=== PATIENT | male | born 1935 | race Two or more races ===

== ENCOUNTER 2017-06-21 05:57 | Inpatient (IN) | payer MEDICARE, OTHER ==
[~2017-06-21] VITALS: Ht 182.9 cm; Wt 97.5 kg
--- NOTE | 2017-06-21 07:20 | NUR ---
RN NOTES RECEIVED PATIENT AWAKE ALERT AND VERBALLY RESPONSIVE, ABLE TO MAKE NEEDS KNOWN. RESPIRATIONS EVEN AND UNLABORED, DENIES ANY PAIN OR DISCOMFORT IV ACCESS TO LEFT WRIST PATENT AND INTACT NO REDNESS OR INFILTRATION NOTED. PATIENT TO HAVE SURGICAL PROCEDURE, WILL CARRY OUT ALL ADMITTING ORDERS, WILL CONTINUE TO MONITOR .
[2017-06-21 08:00] VITALS: BP 145/75
[2017-06-21] MEDS ORDERED: ACETAMINOPHEN 325 MG TABLET PO ONE (08:30)
[2017-06-21] MEDS ORDERED: CELECOXIB 100 MG CAPSULE PO ONE (08:30)
[2017-06-21] MEDS ORDERED: oxyCODONE HCL SR 10MG TAB.SR.12H PO SCH (08:30)
--- NOTE | 2017-06-21 08:30 | NUR ---
RN NOTES CLARIFIED MEDICATION ORDERS WITH DR. INIGUEZ WILL CONTINUE TO MONITOR AND ADMINISTER ORDERED
[2017-06-21] MEDS ORDERED: WARF-68 PO ×2 (08:46)
[2017-06-21] MEDS ORDERED: TEST100V5 IM (08:46)
[2017-06-21] MEDS ORDERED: VALS160T2 PO (08:46)
[2017-06-21] MEDS ORDERED: LOVA40TA2 PO (08:46)
[2017-06-21] MEDS ORDERED: CHLO25TA2 PO (08:46)
[2017-06-21] MEDS ORDERED: OMEP20CA10 PO (08:46)
[2017-06-21] MEDS ORDERED: ATOR20TA PO (08:46)
[2017-06-21] MEDS ORDERED: FLUO15CR TP (08:46)
[2017-06-21] MEDS ORDERED: NITR0.4T48 SL (08:46)
[2017-06-21] MEDS ORDERED: ASPI-1169 PO (08:46)
[2017-06-21] MEDS ORDERED: oxyCODONE IR immediate release 5 MG PO ONE (09:00)
[2017-06-21 10:00] VITALS: BP 151/78
[2017-06-21] MEDS ORDERED: TRANEXAMIC ACID 3,000 MG in SODIUM CHLORIDE IRRIG SOLUTION 70 ML IR ONE (10:30)
[2017-06-21] MEDS ORDERED: BACITRACIN 50000 UNITS/VIAL ONE (10:31)
[2017-06-21] MEDS ORDERED: KETOROLAC TROMETHAMINE INJ 30 MG/ML VIAL ONE (10:31)
[2017-06-21] MEDS ORDERED: BUPIVACAINE 0.25% 75 MG/30 ML VIAL ONE (10:31)
[2017-06-21] MEDS ORDERED: ROCURONIUM BROMIDE 50 MG/5 ML ONE (10:41)
[2017-06-21 11:07] LABS: BASOPHILS % (AUTO) 0.3 % (0.0-2.0); CALCIUM, SERUM 9.3 mg/dL (8.5-10.1); CARBON DIOXIDE 26 mmol/L (21-32); CHLORIDE 105 mmol/L (98-107); CREATININE 1.5 mg/dL (0.6-1.3); EOSINOPHILS % (AUTO) 2.4 % (0.0-6.0); GLUCOSE 108 mg/dL (74-106); HEMATOCRIT 51 % (39-51); HEMOGLOBIN 17.1 g/dL (13.5-17.5); LYMPHOCYTES # (AUTO) 1.9 /CMM (0.8-4.8); LYMPHOCYTES % (AUTO) 21.4 % (20.0-44.0); MEAN CORPUSCULAR HGB CONC 34 g/dl (31.0-36.0); MEAN CORPUSCULAR VOLUME 85 fL (80-96); MONOCYTES # (AUTO) 0.9 /CMM (0.1-1.30); MONOCYTES % (AUTO) 9.8 % (2.0-12.0); NEUTROPHILS % (AUTO) 66.1 % (43.0-81.0); PLATELET COUNT (AUTO) 155 /CMM (150-450); POTASSIUM 3.6 mmol/L (3.5-5.1); RDW COEFFICIENT OF VARIATION 13.2 (11.5-15.0); RED BLOOD CELL COUNT(AUTO) 6.01 MIL/uL (4.5-6.0); SODIUM SERUM 141 mmol/L (136-145); UREA NITROGEN, BLOOD 26 mg/dL (7-18)
[2017-06-21 11:12] LABS: ALANINE AMINOTRANSFERASE 44 U/L (12-78); ALBUMIN 3.9 g/dL (3.4-5.0); ALKALINE PHOSPHATASE 42 U/L (46-116); ASPARTATE AMINOTRANSFERASE 38 U/L (15-37); BILIRUBIN,TOTAL 1.1 mg/dL (0.2-1.0); TOTAL PROTEIN, SERUM 7.1 g/dL (6.4-8.2)
[2017-06-21 11:29] LABS: INR 1.29 (0.87-1.13)
[2017-06-21] MEDS ORDERED: MORPHINE SULFATE INJ 4 MG/ML DISP.SYRIN ONE ×2 (12:15→12:47)
[2017-06-21] MEDS ORDERED: ONDANSETRON HCL/PF 4 MG/2 ML VIAL ONE (12:24)
[2017-06-21] MEDS ORDERED: ACETAMINOPHEN 325 MG TABLET PO PRN (13:30)
[2017-06-21] MEDS ORDERED: SENNOSIDES 8.6 MG TABLET PO PRN (13:30)
[2017-06-21] MEDS ORDERED: DOCUSATE SODIUM 250 MG CAPSULE PO PRN (13:30)
[2017-06-21] MEDS ORDERED: HYDROCODONE/APAP 5/325MG 1 EACH TABLET PO PRN (13:30)
[2017-06-21] MEDS ORDERED: BISACODYL SUPP (10 MG) 10 MG/SUPP.RECT SUPP.RECT RC PRN (14:00)
[2017-06-21] MEDS ORDERED: ZOLPIDEM TARTRATE 5 MG TABLET PO PRN (14:00)
[2017-06-21 16:00] VITALS: BP 116/63
[2017-06-21] MEDS: CEFAZOLIN 2 GM in IV D5W 100 ML IV SCH (18:26)
[2017-06-21] MEDS: IV LR 1000 ML 1,000 ML IV PRN (18:26)
[2017-06-21] MEDS: ACETAMINOPHEN 325 MG TABLET PO SCH ×2 (18:30→22:57)
--- NOTE | 2017-06-21 19:02 | NUR ---
RN NOTES PATIENT REFUSING TYLENOL AT THIS TIME STATES, " I DONT HAVE PAIN AT THIS TIME ILL TAKE IT A LITTLE LATER" WILL CONTINUE TO MONITOR
--- NOTE | 2017-06-21 19:03 | NUR ---
RN NOTES PATIENT AWAKE ALERT AND VERBALLY RESPONSIVE, ABLE TO MAKE NEEDS KNOWN. RESPIRATIONS EVEN AND UNLABORED, DENIES ANY PAIN OR DISCOMFORT IV ACCESS TO LEFT WRIST PATENT AND INTACT NO REDNESS OR INFILTRATION NOTED. KEPT CLEAN DRY AND COMFORTABLE, CALL LIGHT WITHIN EASY REACH, WILL CONTINUE TO MONITOR .CALLED RESPIRATORY THERAPY FOR CPAP SET UP, RT WILL COME TO SET UP CPAP
--- NOTE | 2017-06-21 19:30 | NUR ---
BOOKMOBILE LIBRARIAN OPENING NOTES: PATIENT IN BED, AOX4, ON ROOM AIR, BREATHING EVEN AND UNLABORED. BREATH SOUNDS CLEAR TO AUSCULTATION. APPEARS CALM AND IN NO DISTRESS, DENIES PAIN AT THIS TIME. ON TELE MONITORING: AFIB AT RATE OF 60S. PIV OVER LEFT WRIST G 20 INTACT AND PATENT, INFUSING WELL WITH LR RUNNING AT 100 ML/HR. NOTED R HIP HAS TWO CLEAN AND INTACT SURGICAL DRESSINGS, NO BLEEDING NOTED. PROVIDED FOR COMFORT AND SAFETY. BED IN LOWEST AND LOCKED POSITION, SIDERAILS UP X 3, CALL LIGHT WITHIN REACH. WILL CONT TO MONITOR.
[2017-06-21 20:00] VITALS: BP 133/74
[2017-06-21 20:04] VITALS: BP 133/74
--- NOTE | 2017-06-21 21:00 | NUR ---
PT PLACED ON BIPAP PER MD. BIPAP PLUGGED INTO RED OUTLET. ALARMS ARE ON AND AUDIBLE. AMBU BAG AT BEDSIDE.
--- NOTE | 2017-06-21 21:06 | NUR ---
RN NOTES: SPOKE TO DR CRANE RE MED RECON FOR PATIENT, AND TOLD HER PATIENT WANTS TO RESTART THE DIOVAN AND THE ATORVASTATIN. PER DR CRANE, JUST RESTART THE LIPITOR, AND THE REST OF MED RECON TO BE REVIEWED IN AM. NOTED AND CARRIED OUT.
--- NOTE | 2017-06-21 21:15 | NUR ---
RN NOTES: PATIENT STATES THAT THE CPAP MASK IS VERY UNCOMFORTABLE, ASKED FOR IT TO BE REMOVED. REMOVED MASK AND INFORMED RT.
[2017-06-21] MEDS: ATORVASTATIN 40 MG TABLET PO SCH (21:19)
--- NOTE | 2017-06-21 21:37 | NUR ---
PT NOT COMFORTABLE ON OUR MACHINE. NO RESPIRATORY DISTRESS NOTED. SSPO2 97 ON ROOM AIR. RN NOTIFIED. WILL CONTINUE TO MONITOR. Addendum: 06/21/17 at 2138 by ABBY ERAZO RT Amended: Links added.
--- NOTE | 2017-06-21 22:00 | NUR ---
RN NOTES: PATIENT STATES THAT HIS R FOOT FEELS WARMER THAN HIS LEFT FOOT, HOWEVER, WHEN CHECKED, R FOOT FEELS COOLER TO TOUCH VS. LEFT FOOT. CHOCO TOES HAVE LESS THAN 3 SEC CAP REFILL, PEDAL PULSES NORMAL, BILATERALLY EQUAL IN STRENGTH. NOTED NO MOTTLING OVER R OR LEFT FOOT, NO EDEMA NOTED IN BLE/ CHOCO FEET. WHEN ASSESSED FOR SENSATION, PATIENT STATES HE FEELS WITH BOTH FEET WHEN LIGHT AND DEEP TOUCH WAS APPLIED, HOWEVER, HE ALSO STATES THAT HE HAS CHRONIC NEUROPATHY. PT ALSO STATES THAT BEFORE HE WAS HOSPITALIZED AT [facility], HE HAD AN ULTRASOUND OF BLE DONE BY HIS BEHAVIOUR SUPPORT TEACHER OUTPATIENT, BUT HE HAS NOT RECEIVED THE RESULT YET. WILL CONT TO ASSESS PEDAL PULSES AND SENSATIONS FOR CHANGES.
[2017-06-22] VITALS (7 sets, daily range): BP systolic 122–152; BP diastolic 61–78
[2017-06-22] MEDS: CEFAZOLIN 2 GM in IV D5W 100 ML IV SCH (03:08)
--- NOTE | 2017-06-22 04:50 | NUR ---
RN NOTES: INFORMED DR CRANE THAT PATIENT'S HR GOES TO 40S AND EVEN 38 WHILE ASLEEP BUT PATIENT IS ASYMPTOMATIC, BP IS STABLE. NO NEW ORDERS GIVEN, JUST CONT TO MONITOR PER MD.
--- NOTE | 2017-06-22 06:00 | NUR ---
RN NOTES: DR BOONE AT BEDSIDE, SINCE PATIENT IS COMPLAINING OF SORE THROAT AND DRYNESS OF MOUTH, CEPACOL LOZENGE WAS ORDERED.
[2017-06-22] MEDS: ACETAMINOPHEN 325 MG TABLET PO SCH ×3 (06:10→17:51)
[2017-06-22] MEDS: IV LR 1000 ML 1,000 ML IV PRN (06:10)
[2017-06-22] MEDS: ENOXAPARIN SODIUM 40 MG/0.4 ML DISP.SYRIN SQ SCH (06:23)
--- NOTE | 2017-06-22 06:39 | NUR ---
RN NOTES: PATIENT WAS ONLY ABLE TO VOID 350 ML LAST NIGHT. BLADDER SCANNED, MAX AMOUNT NOTED WAS 73 ML. BLADDER DOES NOT FEEL DISTENDED, NOR DOES THE PATIENT FEEL LIKE HE NEEDS TO VOID. PER PATIENT, HE HAS TROUBLE URINATING WITHOUT HIS DIURETIC.
--- NOTE | 2017-06-22 06:58 | NUR ---
[employer] TM1 DEVELOPER CLOSING NOTES: PATIENT IN BED, AOX4, ON ROOM AIR, BREATHING EVEN AND UNLABORED. APPEARS CALM AND IN NO DISTRESS. STATES THAT HE HAS MODERATE PAIN OVER LOWER BACK AND R HIP ONLY WHEN MOVING. DRESSING OVER R HIP CLEAN AND INTACT, FOR FIRST DRESSING CHANGE ON MONDAY ORDERED BY DR INIGUEZ. DUE MEDS GIVEN. PROVIDED FOR COMFORT AND SAFETY. BED IN LOWEST AND LOCKED POSITION, SIDERAILS UP X2, CALL LIGHT WITHIN REACH. WILL ENDORSE TO AM RN FOR GENIA.
[2017-06-22] MEDS ORDERED: MAG HYDROX/AL HYDROX/SIMETH 30 ML UDC PO PRN (07:00)
[2017-06-22] MEDS ORDERED: MAGNESIUM HYDROXIDE 30 ML UDC PO PRN (07:00)
--- NOTE | 2017-06-22 07:05 | NUR ---
RN NOTES PT IS SITTING UP IN BED, ALERT AND ORIENTED, RESTING COMFORTABLY. PT ON RA, RESPIRATIONS ARE EVEN AND UNLABORED. IV ON L WRIST INTACT AND RUNNING LR @ 50ML/HR. SAFETY MEASURES ARE IN PLACE, CALL LIGHT IS IN REACH. WILL CONTINUE TO MONITOR.
[2017-06-22] MEDS: PANTOPRAZOLE 40 MG TABLET.DR PO SCH (07:49)
[2017-06-22] MEDS: MENTHOL/CETYLPYRD (CEPACOL) 1 LOZ LOZENGE PO PRN ×2 (07:49→11:47)
[2017-06-22 08:19] LABS: EOSINOPHILS % (AUTO) 0.5 % (0.0-6.0); HEMATOCRIT 46 % (39-51); HEMOGLOBIN 15.8 g/dL (13.5-17.5); LYMPHOCYTES # (AUTO) 1.3 /CMM (0.8-4.8); LYMPHOCYTES % (AUTO) 10.5 % (20.0-44.0); MEAN CORPUSCULAR HGB CONC 34 g/dl (31.0-36.0); MEAN CORPUSCULAR VOLUME 84 fL (80-96); MONOCYTES # (AUTO) 1.2 /CMM (0.1-1.30); MONOCYTES % (AUTO) 9.8 % (2.0-12.0); NEUTROPHILS # (AUTO) 9.7 /CMM (1.8-8.9); NEUTROPHILS % (AUTO) 79.2 % (43.0-81.0); PLATELET COUNT (AUTO) 166 /CMM (150-450); RDW COEFFICIENT OF VARIATION 13.4 (11.5-15.0); RED BLOOD CELL COUNT(AUTO) 5.51 MIL/uL (4.5-6.0); WHITE BLOOD COUNT (AUTO) 12.3 K/uL (4.3-11.0)
[2017-06-22 08:21] LABS: CALCIUM, SERUM 8.7 mg/dL (8.5-10.1); CARBON DIOXIDE 29 mmol/L (21-32); CHLORIDE 104 mmol/L (98-107); CREATININE 1.7 mg/dL (0.6-1.3); GLUCOSE 132 mg/dL (74-106); POTASSIUM 4.4 mmol/L (3.5-5.1); SODIUM SERUM 143 mmol/L (136-145); UREA NITROGEN, BLOOD 30 mg/dL (7-18)
[2017-06-22 08:30] LABS: INR 1.16 (0.87-1.13)
[2017-06-22 09:06] LABS: THYROID STIMULATING HORMONE 0.612 uIU/mL (0.358-3.74)
--- NOTE | 2017-06-22 11:40 | NUR ---
RN NOTES PT IV NOTED TO BE LEAKING. TOLD PT NEW IV WOULD NEED TO BE INSERTED. PT STATED THAT HE DOES NOT WANT TO HAVE A NEW IV IN BECAUSE HE DOESNT HAVE ANYTHING THAT NEEDS TO BE GIVEN THROUGH THE IV AND HE CAN DRINK ENOUGH FLUIDS ORALLY.
[2017-06-22] MEDS ORDERED: WARFARIN SODIUM 2 MG TABLET PO SCH (17:00)
--- NOTE | 2017-06-22 18:27 | NUR ---
RN NOTES PT IS SITTING UP IN BED, ALERT AND ORIENTED. PT ON RA, RESPIRATIONS ARE EVEN AND UNLABORED. NO IV ACCESS, PT REFUSES. ALL MEDS WERE GIVEN ORDERED AND PT NEEDS MET. FOAM BLOCK IS IN BETWEEN LEGS FOR HIP STABILITY. INCISION DRESSING IS INTACT AND CLEAN. TELE MONITOR SHOWS A-FIB IN THE 60'S. NO SIGNS OF DISTRESS NOTED. SAFETY MEASURES ARE IN PLACE, CALL LIGHT IS IN REACH. WILL ENDORSE TO [employer] AND RAMP SERVICES MANAGER RN FOR CONTINUITY OF CARE.
[2017-06-22] MEDS: HYDROCODONE/APAP 5/325MG 1 EACH TABLET PO PRN (20:53)
[2017-06-22] MEDS: ATORVASTATIN 40 MG TABLET PO SCH (20:56)
[2017-06-23] MEDS: ACETAMINOPHEN 325 MG TABLET PO SCH ×3 (00:21→13:07)
[2017-06-23 00:34] VITALS: BP 128/69
[2017-06-23] MEDS: HYDROCODONE/APAP 5/325MG 1 EACH TABLET PO PRN (01:53)
[2017-06-23 04:36] VITALS: BP 122/76
[2017-06-23] MEDS: ENOXAPARIN SODIUM 40 MG/0.4 ML DISP.SYRIN SQ SCH (06:25)
[2017-06-23] MEDS: MENTHOL/CETYLPYRD (CEPACOL) 1 LOZ LOZENGE PO PRN (06:25)
--- NOTE | 2017-06-23 06:43 | NUR ---
ACCOUNTS PAYABLE TECHNICIAN NOTES AWAKE & RESPONSIVE. NOT IN ANY DISTRESS. NO SOB NOTED. DENIES ANY PAIN OR DISCOMFORT AT THIS TIME. ON TELE AFIB @ 56 WITH IV-HL PATENT & INTACT. MONITORED ACCORDINGLY. CALL LIGHT WITHIN REACH. BED IN LOWEST POSITION. SR UP X 2 FOR SAFETY. WILL ENDORSE TO NEXT SHIFT.
--- NOTE | 2017-06-23 07:09 | NUR ---
MS RN OPENING NOTES RECEIVED PT FROM NIGHTSHIFT NURSE IN STABLE CONDITION. PT IS A/O X3. NO SOB OR SIGNS OF DISTRESS NOTED. BREATHING IS EVEN AND UNLABORED. HE DENIES ANY PAIN AT THIS TIME. ABDUCTOR PILLOW NOTED TO BE IN PLACE. SURGICAL DRESSING NOTED TO BE CLEAN, DRY, AND INTACT. WILL CHANGE DRESSING AT A LATER TIME TODAY ORDERED. PT REFUSING IV INSERTION. MD IS AWARE. BED IN LOW LOCKED POSITION, SIDE RAILS UP X2, CALL LIGHT WITHIN REACH. WILL CONTINUE TO MONITOR
[2017-06-23 08:00] VITALS: BP 133/74
[2017-06-23] MEDS: PANTOPRAZOLE 40 MG TABLET.DR PO SCH (08:37)
--- NOTE | 2017-06-23 10:45 | NUR ---
MS RN NOTES: BIO MED BIO MED WAS CONTACTED IN REGARD TO CERTIFYING PT'S PERSONAL CPAP MACHINE. PER TECH "WE CAN NO LONGER CERTIFY PERSONAL EQUIPMENT THE HOSPITAL'S POLICY HAS CHANGED. THE PT MUST USE THE EQUIPMENT PROVIDED BY THE HOSPITAL". DR MACK MAD AWARE ALONG WITH THE PT.
[2017-06-23 15:17] LABS: INR 1.13 (0.87-1.13)
--- NOTE | 2017-06-23 15:25 | NUR ---
MS MANAGER COLLECTION NOTES PT WAS DISCHARGED [facility] IN STABLE CONDITION. REPORT CALLED AND GIVEN TO NNAMDI THE RECEIVING NURSE AT [facility]. ALL NEEDS WERE MET DURING SHIFT AND ORDERS CARRIED OUT ACCORDINGLY. ALL DUE MEDS GIVEN. SURGICAL DRESSING CHANGE ORDERED BY MD. DISCHARGE PHOTOS TAKEN AND PLACED IN PT'S CHART. BELONGINGS REVIEWED AND ALL WERE SENT WITH PT. DISCHARGE INSTRUCTIONS PROVIDED UTILIZING [employer] AND DISCHARGE MATERIALS. HE WAS SAFTELY TRASFERED FROM BED TO [facility] BY EMT AND LEFT VIA AMBULANCE TRANSPORT.
[2017-06-25] MEDS ORDERED: WARFARIN SODIUM 2 MG TABLET PO SCH (17:00)
== END 2017-06-23 15:44 | DRG 469 ==
LOC: DS 05:57 → MED 05:59 → TELE 21:33 → MED 06-23 08:33
PROVIDERS: ADMIT Specialist; ATTEND Specialist
PROC: 0SR90JZ Replacement of Right Hip Joint with Synthetic Substitute, Open Approach (ICD-10-PCS; principal; 2017-06-21 18:50)
DX: M16.11 Unilateral primary osteoarthritis, right hip (principal); N17.0 Acute kidney failure with tubular necrosis; I48.2 Chronic atrial fibrillation; N18.3 Chronic kidney disease, stage 3 (moderate); I12.9 Hypertensive chronic kidney disease with stage 1 through stage 4 chronic kidney disease, or unspecified chronic kidney disease; Z85.46 Personal history of malignant neoplasm of prostate; Z79.01 Long term (current) use of anticoagulants; I25.2 Old myocardial infarction; Z96.659 Presence of unspecified artificial knee joint; I25.10 Atherosclerotic heart disease of native coronary artery without angina pectoris; K21.9 Gastro-esophageal reflux disease without esophagitis; G47.33 Obstructive sleep apnea (adult) (pediatric); E78.00 Pure hypercholesterolemia, unspecified; D72.828 Other elevated white blood cell count; R00.1 Bradycardia, unspecified
CPT/HCPCS: 36415; 80048-TC; 80053-TC; 80061-TC; 82306; 82962-TC; 84439-TC; 84443-TC; 85025-TC; 85610-TC; 86850-TC; 86921-TC; 87081-TC; 88305-TC; 88311-TC; 93307-TC; 97110-TC; 97116-TC; 97530-TC; A4217; A6209; A6402; J0360; J0690; J1100; J1650; J1885; J2270; J2405; J2704; J2710; J3490; J7060; J7120; Z7610